=== PATIENT | female | born 1940 ===

== ENCOUNTER 2019-07-08 14:15 | Inpatient (IN) | payer OTHER ==
[~2019-07-08] VITALS: Ht 157.5 cm; Wt 52.6 kg
[~2019-07-08 14:15] MED LIST: ATACAND16 MG; DULERA 100 MCG/13 GM; LEVALBUTER1.25 MG/0.; SINGULAIR10 MG
== END 2019-07-20 13:59 | disposition home or self-care (01) | DRG 194 ==
LOC: ER 14:15 → SEC-K 07-09 11:19 → MEDJ 07-09 11:19
PROVIDERS: ADMIT Internal Medicine
PROC: 8E0ZXY6 Isolation (ICD-10-PCS; principal; 2019-07-09)
PROC: BB24ZZZ Computerized Tomography (CT Scan) of Bilateral Lungs (ICD-10-PCS; 2019-07-09)
PROC: 3E0F7GC Introduction of Other Therapeutic Substance into Respiratory Tract, Via Natural or Artificial Opening (ICD-10-PCS; 2019-07-09)
DX: J15.7 Pneumonia due to Mycoplasma pneumoniae (principal); J90 Pleural effusion, not elsewhere classified; J44.1 Chronic obstructive pulmonary disease with (acute) exacerbation; E87.1 Hypo-osmolality and hyponatremia; J18.1 Lobar pneumonia, unspecified organism; J18.0 Bronchopneumonia, unspecified organism; I10 Essential (primary) hypertension